=== PATIENT | male | born 1965 | race Caucasian/White ===

== ENCOUNTER → 2016-04-26 | Outpatient (CLI) | payer BC, OTHER ==
--- NOTE | 2016-04-26 12:03 | EKG ---
[address] [address] Measurements Intervals [place] Rate: 63 P: 19 MI: 140 QRS: 8 QRSD: 112 T: 33 QT: 379 QTc: 387 Interpretive Statements SINUS RHYTHM INCOMPLETE RIGHT BUNDLE BRANCH BLOCK No previous ECG available for comparison Electronically Signed On 04-26-16 18:02:10 [facility] by Mike Foreman [email or web address]
[2016-04-26 12:12] LABS: BASOPHILS # (AUTO) 0.03 10*3/UL; BASOPHILS % (AUTO) 0.7 % (0-1); EOSINOPHILS % (AUTO) 1.7 % (0-8); HEMATOCRIT 43.5 % (42.0-52.0); HEMOGLOBIN 15.4 g/dL (14.0-18.0); IMM GRAN % (AUTO) 0 % (0-5); IMM GRAN# (AUTO) 0 10*3/UL; LYMPHOCYTES # (AUTO) 1.45 10*3/uL; LYMPHOCYTES % (AUTO) 35.8 % (10-50); MEAN CORPUSCULAR HEMOGLOBIN 30.6 PG (27-31); MEAN CORPUSCULAR HGB CONC 35.4 g/dL (33-37); MEAN PLATELET VOLUME 9.2 FL (7.4-12.2); MONOCYTES # (AUTO) 0.43 10*3/UL (0.3-0.8); MONOCYTES % (AUTO) 10.6 % (5-15); NEUTROPHILS # (AUTO) 2.07 10*3/UL; NEUTROPHILS % (AUTO) 51.2 % (50-80); RDW COEFFICIENT OF VARIATION 14.1 % (11.5-14.5); RED BLOOD COUNT 5.04 10^6/uL (4.70-6.10); WHITE BLOOD COUNT 4.05 10^3/uL (4.8-10.8)
[2016-04-26 12:19] LABS: PLATELET MORPHOLOGY COMMENT NORMAL MORPHOLOGY (NORM)
[2016-04-26 12:20] LABS: ASPARTATE AMINO TRANSFERASE 24 IU/L (21-57); BILIRUBIN,TOTAL 0.6 mg/dL (0.3-1.2); BLOOD UREA NITROGEN 23 mg/dL (7-22); BUN/CREATININE RATIO 25.55 (6-20); CALCIUM 9.2 mg/dL (8.7-10.7); CHLORIDE 105 meq/L (98-112); CREATININE 0.9 mg/dL (0.70-1.50); EST GLOMERULAR FILTRATION > 60 (>60 ml/min/1.73m(2)); GLUCOSE 88 mg/dL (78-110); POTASSIUM 4.4 meq/L (3.8-5.2); SODIUM 141 meq/L (135-145); TOTAL PROTEIN 7.1 g/dL (6.1-8.0)
[2016-04-26 12:59] LABS: ERYTHROCYTE SEDIMENTATION RATE 3 MM/HR (0-15)
--- NOTE | 2016-04-26 13:03 | DI ---
PA /LATERAL CHEST X-RAY, 04/26/2016 11:43 AM : Clinical History: Chest pain Previous Exam: July 04, 2006 There is no acute soft tissue or bony abnormality. Heart size is normal. Lungs are clear. Mediastinal structures are normal. There are no pulmonary nodules. IMPRESSION: Normal chest x-ray.
== END ==
LOC: EKG 11:56
PROVIDERS: ATTEND Family Medicine
DX: R07.9 Chest pain, unspecified (principal); E78.4 Other hyperlipidemia; R03.0 Elevated blood-pressure reading, without diagnosis of hypertension; I45.19 Other right bundle-branch block
CPT/HCPCS: 36415; 71020; 80053; 84484; 85025; 85652; 93005; 93010

== ENCOUNTER → 2016-05-10 | Outpatient (CLI) | payer BC, OTHER ==
--- NOTE | 2016-05-10 09:29 | DI ---
MRI CERVICAL SPINE W/O CN,05/10/2016 8:17 AM: Clinical History: Neck pain extending into the fifth digit Previous Exam: December 15, 2014 Findings: Multiplanar MR images are obtained through the cervical spine without contrast. Bony alignment is anatomic. No fractures are seen. Marrow signal is preserved. Vertebral body height is preserved. The spinal cord descends normally with normal course, caliber and signal characteristics. Posterior fossa is normal without evidence of Chiari malformation. Individual intervertebral disc spaces: C2/3: No significant stenosis. C3/4: No significant stenosis. C4/5 there is a broad-based disc bulge with some uncovertebral joint osteophyte formation causing mil d central canal stenosis. This is slightly larger than the prior exam. There is mild left neuroforami nal narrowing. C5/6: There is a broad-based disc bulge with annular fissuring and a left paracentral through lateral recess disc extrusion causing moderate central canal stenosis without significant neural foraminal n arrowing. C6-7: There is disc desiccation broad-based disc bulge and some mild uncovertebral joint osteophyte f ormation contributing to mild central canal stenosis and mild bilateral neural foraminal narrowing un changed from the prior exam. C7/T1: No significant stenosis. Impression: 3 broad-based disc bulges which were present on the prior exam. The disc bulge at C5/6 has progressed slightly since the prior exam the left-sided annular fissure and disc extrusion involving the left p aracentral through foraminal zones.
== END ==
LOC: MRI 08:11
PROVIDERS: ATTEND Chiropractor
DX: M54.2 Cervicalgia (principal); M47.22 Other spondylosis with radiculopathy, cervical region; M50.123 Cervical disc disorder at C6-C7 level with radiculopathy
CPT/HCPCS: 72141